=== PATIENT | female | born 1975 | race Caucasian/White ===

== ENCOUNTER 2017-10-23 14:46 | Outpatient (CLI) | payer BC | END 2017-10-23 14:47 | disposition home or self-care (01) | LOC: BICRAD 14:46 | PROVIDERS: ATTEND Internal Medicine Rheumatology | DX: M25.571 Pain in right ankle and joints of right foot (principal); M65.9 Synovitis and tenosynovitis, unspecified; S82.831A Other fracture of upper and lower end of right fibula, initial encounter for closed fracture ==

== ENCOUNTER 2018-06-30 02:15 | Outpatient (CLI) | payer BC ==
[2018-06-30 16:24] LABS: #Basophils 0.1 thou/uL (0.0-0.2); #Eosinphils 0.1 thou/uL (0.0-0.7); #Lymphocytes 2.1 thou/uL (1.20-3.40); #Monocytes 0.8 thou/uL (0.11-0.59); #Neutrophils 5.6 thou/uL (1.40-6.50); %Basophils 0.8 % (0.0-1.0); %Eosinophils 1.1 % (0.0-10.0); %Lymphocytes 24.7 % (21.0-51.0); %Monocytes 8.7 % (0.0-10.0); %Neutrophils 64.8 % (42.0-75.0); Hemoglobin 11.6 g/dL (12.0-16.0); Mean Corpuscular HGB CONC 31.9 g/dL (32.0-36.0); Mean Corpuscular Hemoglobin 28.4 pg (27.0-31.0); Mean Corpuscular Volume 89.1 fL (78.0-98.0); Mean Platelet Volume 7.6 fL (7.4-10.4); Platelet Count 291 thou/uL (130-400); RBC Distribution Width 12.7 % (11.5-14.5); Red Blood Cell (RBC) Count 4.09 mill/uL (4.20-5.40); White Blood Cell (WBC) Count 8.6 thou/uL (4.8-10.8)
[2018-06-30 16:29] LABS: BHCG - Serum Negative (NEGATIVE); Bilirubin Negative (Negative); Blood, Urine Negative (Negative); Clarity CLOUDY (Clear); Glucose, Urine (Dipstick) Negative (Negative); Leukocyte Negative (Negative); Nitrite Negative (Negative); Pregs Control Background? CLEAR/WHITE (CLR/WHITE); Pregs Control Bar Appear? YES (CONTROL BAR); Protein, Urine (Dipstick) Negative (Neg-Trace); Specific Gravity, Urine 1.016 (1.002-1.036); Urobilinogen 0.2 mg/dL (0.2-1.0)
[2018-06-30 16:30] LABS: Bacteria/HPF None Seen HPF (None Seen); Hyaline Casts/LPF 0-3 HYALINE CAST LPF (0-3 Hyaline); RBC/HPF 0-3 HPF (0-3); Squamous Epithelial None Seen HPF (0-3); WBC/HPF None Seen HPF (0-3)
== END 2018-06-30 02:16 | disposition home or self-care (01) ==
LOC: LABBT 02:15
PROVIDERS: ATTEND Orthopaedic Surgery Hand Surgery
DX: Z01.812 Encounter for preprocedural laboratory examination (principal); S63.042A Subluxation of carpometacarpal joint of left thumb, initial encounter
CPT/HCPCS: 81001; 84703; 85025; 85652

== ENCOUNTER 2018-07-04 05:43 | Day surgery (SDC) | payer BC ==
[2018-06-30 14:30] VITALS: BMI 22.4
[2018-07-04] MEDS ORDERED: Fentanyl 100 MCG/2 ML VIAL ONE ×2 (06:24→07:09)
[2018-07-04] MEDS ORDERED: Midazolam HCl 2 mg/2 ml Vial ONE ×2 (06:24→07:09)
[2018-07-04] MEDS ORDERED: Bacitracin Zinc Ointment 30 gm TUBE ONE (06:28)
[2018-07-04] MEDS ORDERED: Sodium Chloride 0.9% 10 ML ONE (06:28)
[2018-07-04] MEDS ORDERED: Bupivacaine PF 0.5% 30 ML VIAL ONE (06:28)
--- NOTE | 2018-07-04 10:54 | RAD ---
INTRAOPERATIVE FLUOROSCOPY VIEWS LEFT HAND: Ten views provided. CLINICAL HISTORY: Arthroplasty, CMC joint repair of left hand. FINDINGS: Intraoperative fluoroscopic imaging reveals placement of K wires overlying the radial aspect of the l eft hand. Details limited on the provided views. IMPRESSION: Intraoperative fluoroscopic imaging of the left hand. Transcribed Date/Time: 07/04/2018 10:59 AM
[2018-07-04] MEDS ORDERED: Ketorolac Tromethamine 30 MG/ML VIAL ONE ×2 (11:22→15:31)
[2018-07-04] MEDS ORDERED: Bupivacaine HCl 0.5%/Epinephrine 1:200,000/PF 30 ml Vial ONE (15:15)
[2018-07-04] MEDS ORDERED: PHENYLEPHRINE-NS 100 MCG/ML 10 ML SYRINGE ONE (15:31)
[2018-07-04] MEDS ORDERED: Ondansetron PF 4 MG/2 ML Vial ONE (15:31)
[2018-07-04] MEDS ORDERED: PROPOFOL 200 MG/20 ML VIAL ONE (15:31)
[2018-07-04] MEDS ORDERED: ePHEDrine 50 MG/ML VIAL ONE (15:31)
[2018-07-04] MEDS ORDERED: Lidocaine 1% PF 5 ML VIAL ONE (15:31)
--- NOTE | 2018-07-07 08:32 | OP ---
DATE OF PROCEDURE: 07/04/2018 COMPLICATIONS: None. TOURNIQUET TIME: 125 minutes. BLOOD LOSS: 25 mL in total. PROCEDURES PERFORMED: 1. Left thumb metacarpophalangeal joint capsulodesis for correction of hyperextension deformity. 2. C-arm supervision, left thumb metacarpophalangeal joint with joint pinning. 3. Total trapeziectomy, left thumb. 4. Left thumb ligament replacement tendon position arthroplasty using tendon flexor carpi radialis. 5. Flexor carpi radialis transfer, complete tendon. 6. C-arm supervision of thumb carpometacarpal phalangeal joint separate incision. 7. Application of short-arm splint. INDICATION: The patient with recurrent subluxation, and at final intraop to have arthritic changes of the carpometacarpal joint as well as having no metacarpophalangeal joint arthritis just hyperextension laxity of the volar capsule. DESCRIPTION OF PROCEDURE: After successful general endotracheal anesthesia, limb was prepped and draped. We outlined a standard incision for the CMC arthroplasty include a J-shaped incision/hockey-stick incision over the carpometacarpal joint, and to harvest incision over the flexor carpi radialis tendon. We next then were able to outline zigzag incision centered on the A1 mickey for the thumb metacarpophalangeal joint palmar capsulodesis. Under C-arm, we then injected both sites with 10 mL of 0.5% Marcaine, inflated the tourniquet after exsanguination of the limb and began with the Clint incision at the MP joint palmar aspect. We carried this through skin and subcutaneous tissue, identified both digital nerves, protected them and then performed the A1 mickey release. At this point, we pulled the flexor pollicis longus tendon ulnarly, found the capsule, made a V-shaped incision proximal to the sesamoids. We then roughened this area to make a trough proximal 0.5 mm deep, then placed a Mitek anchor mini tight in the center of this trough and the center of the bone and then put this in the capsule. We also made a [id number]-[id number]-gwut x2 on either side as we had before Prolene. Before we tied it, we flexed the joint to 25 degrees of the MP joint and pinned the joint with a K-wire, confirmed by C-arm, which is 0.045 inch K-wire. We cut it short below skin as long as it is mobile. Then, we tied the sutures. We then closed the incision with interrupted 4-0 nylon in a simple pattern. Attention was then turned to the palmar CMC joint. At the junction of the palm and dorsal skin, we made a J-shaped hockey incision beginning of 15 mm proximal to the thumb metacarpal base and carried to the level of the scaphoid tubercle. We carried this through skin and subcutaneous tissue, identified the radial nerve branches into the interval between the median and radial nerve dorsal palmar distribution. We then found the abductor pollicis longus. We then entered it slightly only at the dorsal and ulnar side, exposed the CMC joint capsule and made an incision here down to bone. This allowed escape of arthritic type fluid and we inspected the joint and found after preserving the capsule, holding that with a 2-0 Vicryl stay stitch, that the joint had 60% loss of articular surface down to inebriated bone on both sides of the carpometacarpal joint. We placed a heavy threaded 0.062 K-wire in the subchondral region of the trapezium, confirmed on C-arm it was not in the trapezoid, and then found the flexor carpi radialis tendon, protected it after taking it away from the ulnar side of the trapezium. Then, we lifted trapezium out of total trapeziectomy and there was no damage. At this point, we had hemostasis excellent, placed a heavy 3-0 Prolene RB-1 needle double-armed in the posterior medial capsule and then turned attention to the lateral wall of the metacarpal. We placed a wide spoonbill Hohmann in the retraction site between the first and second carpometacarpal joint, removed some osteophytes in this region and then drilled a hole with a 2.5 drill bit beginning 15 mm and then obliquely by 45 degrees in at the bony chondral junction direct ulnarly. This was excellent position and we did the same through the same hole using a 0.035 K-wire each time with the nail turned parallel to the plane of the table. Once we had done this, we then irrigated the area, used curette progressively to enlarge the area and now we felt we had adequate hole for total tendon transfer. We then injected the area around the harvest site, carried through skin and subcutaneous tissue, identified the entire flexor carpi radialis tendon and then lifted this muscular tendon junction up and away from its proximal muscle belly, brought into the wound, removed all muscle belly remnants and then used a curved Mecca tendon passed into place and grabbed the tendon through hole at base of the metacarpal and pulled it through without complications. We then held on appropriate tension and then pinned the joint x2 with totally congruent inner metacarpal first and second alignment in frontal sagittal plane. Then, this tension maintained while we cut the K-wires just below the level of skin, we then sutured under appropriate tension, without change in the position the flexor carpi radialis tendon transfer twice to the side wall metacarpal, twice to the tendon of the joint capsule, and then twice to the abductor pollicis longus after bringing the tendon under it and into the region of the trapezial resection. We then placed remainder approximately 10 cm underneath the graft start and then sutured to itself as well as to the soft tissue on the dorsum of the joint remnant. This was done with a heavy 3-0 Prolene. We now had appropriate tension and we checked this. We then cut the K-wires below the level of the skin, then used the heavy 3-0 Prolene put in the deep capsule, cut the needles, placed the more Pradip needles, and performed the (anchovy) portion of this procedure very deep in the joint capsule prevent impingement and service biological restraint. Then, we cut the suture, leaving only the knot, irrigated, obtained hemostasis again and then finally closed this incision with a 2-0 Vicryl the capsule remnant, we then covered by closing the intervals appropriately and then finally when hemostasis was obtained, we closed a running closure of the deep dermis of the primary carpometacarpal incision and the two FCR harvest sites followed by 4-0 nylon check at the palmar wound over the digit/thumb. The patient left the operating room with as well and no evidence of anesthetic or operative complication. Job ID: [id number]
== END 2018-07-04 13:15 | disposition home or self-care (01) ==
LOC: SDC 05:43
PROVIDERS: ATTEND Orthopaedic Surgery Hand Surgery
PROC: 0LU807Z Supplement Left Hand Tendon with Autologous Tissue Substitute, Open Approach (ICD-10-PCS; principal; 2018-07-04)
PROC: 0LX80ZZ Transfer Left Hand Tendon, Open Approach (ICD-10-PCS; principal; 2018-07-04)
PROC: 0RQT0ZZ Repair Left Carpometacarpal Joint, Open Approach (ICD-10-PCS; principal; 2018-07-04)
DX: M24.445 Recurrent dislocation, left finger (principal); M18.12 Unilateral primary osteoarthritis of first carpometacarpal joint, left hand; M25.242 Flail joint, left hand; M06.849 Other specified rheumatoid arthritis, unspecified hand; Z79.51 Long term (current) use of inhaled steroids; Z79.52 Long term (current) use of systemic steroids; Z79.899 Other long term (current) drug therapy
CPT/HCPCS: 76000; C1713; J0670; J0690; J1885; J2001; J2250; J2405; J2704; J3010; J3490; S0020

== ENCOUNTER 2019-09-11 10:45 | Outpatient (CLI) | payer BC ==
--- NOTE | 2019-09-11 11:23 | RAD ---
CERVICAL SPINE RADIOGRAPHS WITH BENDING LATERAL PROJECTIONS INDICATION: 44-year-old female with history of neck pain ongoing for several months. Patient also has history of rheumatoid arthritis. COMPARISON: None. FINDINGS: Disc and facets joints: There is mild disc degenerative disease seen at C6-7. There is mild facet os teoarthritic change seen at C6-7 and C7-T1. Osseous neural foramina are patent. Fracture: No acute fracture. Alignment: Normal. No abnormal translational motion. The atlantodens interval is normal. Prevertebral soft tissues: Normal Lung apices: Clear. IMPRESSION: Minimal to mild cervical spondylosis
== END 2019-09-11 10:46 | disposition home or self-care (01) ==
LOC: BICRAD 10:45
PROVIDERS: ATTEND Internal Medicine Rheumatology
DX: M54.2 Cervicalgia (principal); M47.812 Spondylosis without myelopathy or radiculopathy, cervical region
CPT/HCPCS: 72052

== ENCOUNTER 2020-06-24 10:12 | Outpatient (CLI) | payer BC | END 2020-06-24 10:13 | disposition home or self-care (01) | LOC: BICMAMMO 10:12 | PROVIDERS: ATTEND Internal Medicine Rheumatology | DX: M81.0 Age-related osteoporosis without current pathological fracture (principal); M85.89 Other specified disorders of bone density and structure, multiple sites | CPT/HCPCS: 77080 ==

== ENCOUNTER 2022-05-01 09:27 | Outpatient (CLI) | payer BC | END 2022-05-01 09:28 | disposition home or self-care (01) | LOC: BICMAMMO 09:27 | PROVIDERS: ATTEND Internal Medicine Rheumatology | DX: M81.0 Age-related osteoporosis without current pathological fracture (principal) | CPT/HCPCS: 77080 ==

== ENCOUNTER 2023-07-12 11:01 | Outpatient (CLI) | payer BC | END 2023-07-12 11:02 | disposition home or self-care (01) | LOC: BICMAMMO 11:01 | PROVIDERS: ATTEND Internal Medicine Rheumatology | DX: M81.0 Age-related osteoporosis without current pathological fracture (principal); M85.89 Other specified disorders of bone density and structure, multiple sites | CPT/HCPCS: 77080 ==